=== PATIENT | male | born 1995 | race Caucasian/White ===

== ENCOUNTER 2018-05-25 06:52 | Emergency (ER) | payer BC, OTHER ==
[~2018-05-25] VITALS: Ht 167.6 cm; Wt 68.0 kg
[2018-05-25 07:02] VITALS: BP 107/44
[2018-05-25] MEDS ORDERED: HIV MEDS (07:08)
[2018-05-25] MEDS ORDERED: Lidocaine 1% MPF 10mg/ml 5ml INJ ONE (07:30)
[2018-05-25] MEDS ORDERED: DiphenhydrAMINE 50mg/ml Inj IVP ONE (07:30)
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
[2018-05-25 07:46] LABS: APPEARANCE,URINE CLEAR; BILIRUBIN, URINE NEGATIVE (NEGATIVE); GLUCOSE, URINE (UA) NEGATIVE (NEGATIVE); KETONES,URINE NEGATIVE (NEGATIVE); LEUKOCYTE ESTERASE ,URINE NEGATIVE (NEGATIVE); NITRITE,URINE NEGATIVE (NEGATIVE); PH,URINE 6.5 (4.5-8.0); PROTEIN,URINE 1+ (NEGATIVE); UROBILINOGEN,URINE NORMAL MG/DL (0.0-1.0)
[2018-05-25 07:55] LABS: COLOR,URINE YELLOW
[2018-05-25] MEDS ORDERED: BENADRYL25 MG ORAL (08:40)
[2018-05-25] MEDS ORDERED: HYDROCORTISONE-30 GM TOPIC (08:40)
[2018-05-25] MEDS ORDERED: DOXYCYCLINE MO100 MG ORAL (08:40)
[2018-05-25] MEDS ORDERED: [UNRECOGNIZED DRUG - OTHER] TP (08:40)
[2018-05-25 08:46] VITALS: BP 118/58
[2018-05-25 08:49] VITALS: BP 118/58
== END 2018-05-25 08:55 | disposition home or self-care (01) ==
LOC: EMR 07:40
DX: T14.8XXA Other injury of unspecified body region, initial encounter (principal); R21 Rash and other nonspecific skin eruption; Z20.2 Contact with and (suspected) exposure to infections with a predominantly sexual mode of transmission; Z21 Asymptomatic human immunodeficiency virus [HIV] infection status; W57.XXXA Bitten or stung by nonvenomous insect and other nonvenomous arthropods, initial encounter; Z88.2 Allergy status to sulfonamides; Y93.9 Activity, unspecified; Y92.009 Unspecified place in unspecified non-institutional (private) residence as the place of occurrence of the external cause; Y99.9 Unspecified external cause status
CPT/HCPCS: 80307; 81003; 87491; 87590; 96372; 96374; 99284; J0696; J1200